=== PATIENT | female | born 2000 | race Caucasian/White ===

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

== ENCOUNTER 2021-03-18 20:45 | Emergency (ER) | payer OTHER ==
[2021-03-18 20:48] VITALS: BP 105/70; PULSE 58; TEMP 98.3; BMI 25.4
[2021-03-18] MEDS ORDERED: ERYTHROMYCIN 0.5% OPHTHALMIC OINTMENT 3.5 GM TUBE OS ONE (21:20)
[2021-03-18] MEDS ORDERED: ERYTHROMYCIN 0.5% OPHTHALMIC OINTMENT 3.5 GM TUBE ONE (21:29)
== END 2021-03-18 22:10 | disposition home or self-care (01) ==
LOC: JERFT 20:45
DX: H11.422 Conjunctival edema, left eye (principal)
CPT/HCPCS: 99283-25

== ENCOUNTER 2022-04-04 05:18 | Emergency (ER) | payer OTHER ==
[2022-04-04 05:33] VITALS: BP 121/83; PULSE 68; TEMP 98.4; BMI 23.6
[2022-04-04] MEDS ORDERED: ACETAMINOPHEN 500 MG TABLET (FP) PO ONE (05:41)
[2022-04-04] MEDS ORDERED: IBUPROFEN 400 MG TABLET (FP) PO ONE ×2 (05:42→05:52)
[2022-04-04] MEDS ORDERED: AMOX TR/POT CLAV 875MG/125MG TABLETS (FP) PO ONE (05:42)
[2022-04-04] MEDS ORDERED: AMOX TR/POT CLAV 875MG/125MG TABLETS (FP) ONE (05:51)
[2022-04-04] MEDS ORDERED: ACETAMINOPHEN 325 MG TABLET (FP) ONE (05:52)
== END 2022-04-04 06:01 | disposition home or self-care (01) ==
LOC: JER 05:18
DX: H66.91 Otitis media, unspecified, right ear (principal)
CPT/HCPCS: 99283-25

== ENCOUNTER 2022-06-28 14:35 | Emergency (ER) | payer OTHER ==
[2022-06-28 14:40] VITALS: BP 114/73; PULSE 88; RESP 18; TEMP 97.8; BMI 27.1
[2022-06-28] MEDS ORDERED: ONDANSETRON 4 MG/2 ML VIAL IVPUSH ONE (16:05)
[2022-06-28] MEDS ORDERED: KETOROLAC TROMETHAMINE 30 MG/1 ML VIAL IVPUSH ONE (16:05)
[2022-06-28] MEDS ORDERED: SODIUM CHLORIDE 0.9% 500 ML INFUS.BAG IV ONE (16:05)
[2022-06-28] MEDS ORDERED: ONDANSETRON 4 MG/2 ML VIAL ONE (16:18)
[2022-06-28] MEDS ORDERED: KETOROLAC TROMETHAMINE 30 MG/1 ML VIAL ONE (16:18)
[2022-06-28] MEDS ORDERED: FAMOTIDINE 20 MG/50 ML IVPB 20 MG/50 ML MG IVPB ONE ×2 (16:19→16:29)
[2022-06-28 16:39] LABS: BASO % 0.2 % (0-2.0); EOS % 1.5 % (0-4.5); HEMATOCRIT 40.4 % (32.4-45.2); HEMOGLOBIN 13.5 GM/dL (10.7-15.3); LYMPH % 9.3 % (8-40); MCH 30.3 pg (25.7-33.7); MCHC 33.5 g/dl (32.0-36.0); MEAN CELL VOLUME 90.7 fl (80-96); MEAN PLT VOLUME 8.6 fl (7.5-11.1); MONO % 7.4 % (3.8-10.2); NEUT % 81.6 % (42.8-82.8); PLATELET COUNT 245 10^3/uL (134-434); RBC 4.45 M/mm3 (3.60-5.2); RDW 13.5 % (11.6-15.6); WHITE BLOOD COUNT 11.5 K/mm3 (4.0-10.0)
[2022-06-28 16:49] LABS: CALCIUM 8.5 mg/dL (8.5-10.1)
[2022-06-28 16:50] LABS: ALBUMIN 3.8 g/dl (3.4-5.0); BLOOD UREA NITROGEN 11.2 mg/dL (7-18)
[2022-06-28 16:53] LABS: CREATININE 0.5 mg/dL (0.55-1.3)
[2022-06-28 16:54] LABS: TOT PROT 7.5 g/dl (6.4-8.2)
[2022-06-28 16:55] LABS: BILIRUBIN,TOTAL 0.5 mg/dL (0.2-1)
[2022-06-28 17:15] LABS: EPI CELLS 11 /uL (0-25.1); HYALINE CASTS 1 /uL (0-3.1); URINE APPEARANCE CLEAR; URINE BACTERIA 119 /uL (0-1359); URINE BILIRUBIN NEGATIVE (NEGATIVE); URINE COLOR DK YELLOW; URINE GLUCOSE (UA) NEGATIVE (NEGATIVE); URINE KETONE TRACE (NEGATIVE); URINE LEUK ESTERASE NEGATIVE (NEGATIVE); URINE NITRITE NEGATIVE (NEGATIVE); URINE PROTEIN TRACE (NEGATIVE); URINE WBC 9 /uL (0-25.8)
[2022-06-28 17:26] LABS: URINE RBC 139 /uL (0-23.9)
== END 2022-06-28 18:25 | disposition home or self-care (01) ==
LOC: JER 14:35
PROC: 3E033GC Introduction of Other Therapeutic Substance into Peripheral Vein, Percutaneous Approach (ICD-10-PCS; principal; 2022-06-28)
DX: R11.2 Nausea with vomiting, unspecified (principal); R19.7 Diarrhea, unspecified; K82.8 Other specified diseases of gallbladder
CPT/HCPCS: 36415; 76705-TC; 80053; 81003; 83690; 84703; 85025; 99284-25

== ENCOUNTER 2023-05-31 08:43 | Emergency (ER) | payer OTHER ==
[2023-05-31 09:17] VITALS: BP 102/49; PULSE 58; RESP 18; TEMP 98.1; BMI 25.6
[2023-05-31] MEDS ORDERED: ACETAMINOPHEN 500 MG TABLET (FP) PO ONE (09:57)
[2023-05-31 10:51] LABS: BASO % 0.9 % (0-2.0); EOS % 2.3 % (0-4.5); HEMATOCRIT 37.3 % (32.4-45.2); HEMOGLOBIN 12.8 GM/dL (10.7-15.3); LYMPH % 21.4 % (8-40); MCH 30.8 pg (25.7-33.7); MCHC 34.4 g/dl (32.0-36.0); MEAN CELL VOLUME 89.5 fl (80-96); MEAN PLT VOLUME 7.9 fl (7.5-11.1); MONO % 4.7 % (3.8-10.2); NEUT % 70.7 % (42.8-82.8); PLATELET COUNT 261 10^3/uL (134-434); RBC 4.16 M/mm3 (3.60-5.2); RDW 13.6 % (11.6-15.6); WHITE BLOOD COUNT 8.9 K/mm3 (4.0-10.0)
[2023-05-31 11:01] LABS: URINE APPEARANCE TURBID; URINE COLOR RED
[2023-05-31 11:04] LABS: PH,URINE 5.5 (5.0-8.0); URINE BILIRUBIN NEGATIVE (NEGATIVE); URINE GLUCOSE (UA) NEGATIVE (NEGATIVE); URINE KETONE NEGATIVE (NEGATIVE); URINE NITRITE NEGATIVE (NEGATIVE); URINE PROTEIN 1+ (NEGATIVE)
[2023-05-31 11:05] LABS: URINE LEUK ESTERASE NEGATIVE (NEGATIVE)
[2023-05-31 11:06] LABS: EPI CELLS 9 /uL (0-25.1); HYALINE CASTS 28 /uL (0-3.1); URINE RBC 3459 /uL (0-23.9); URINE WBC 16 /uL (0-25.8)
[2023-05-31] MEDS ORDERED: ACETAMINOPHEN 325 MG TABLET (FP) ONE (11:15)
[2023-05-31 11:19] LABS: POTASSIUM 4.1 mmol/L (3.5-5.1)
[2023-05-31 11:22] LABS: ALBUMIN 3.2 g/dl (3.4-5.0); BLOOD UREA NITROGEN 6.2 mg/dL (7-18)
[2023-05-31 11:24] LABS: CALCIUM 9.2 mg/dL (8.5-10.1)
[2023-05-31 11:25] LABS: CREATININE 0.4 mg/dL (0.55-1.3)
[2023-05-31 11:26] LABS: BILIRUBIN,TOTAL 0.2 mg/dL (0.2-1); TOT PROT 6.6 g/dl (6.4-8.2)
== END 2023-05-31 14:29 | disposition home or self-care (01) ==
LOC: JER 08:43
DX: O20.9 Hemorrhage in early pregnancy, unspecified (principal); O26.892 Other specified pregnancy related conditions, second trimester; R10.30 Lower abdominal pain, unspecified; R30.0 Dysuria; Z3A.16 16 weeks gestation of pregnancy
CPT/HCPCS: 36415; 76817-TC; 80053; 81003; 84702; 85025; 86850; 86900; 86901; 87086; 99284-25

== ENCOUNTER 2023-11-20 03:00 | Inpatient (IN) | payer OTHER ==
[2023-11-20] MEDS ORDERED: LACTATED RINGERS SOLUTION 1,000 ML IV SCH (03:40)
[2023-11-20] MEDS ORDERED: AMPICILLIN - 2 GM in SODIUM CHLORIDE 100 ML IVPB ONE (03:40)
[2023-11-20 04:01] VITALS: BMI 32.5
[2023-11-20 04:01] LABS: BASO % 0.6 % (0-2.0); EOS % 1.6 % (0-4.5); HEMATOCRIT 32.5 % (32.4-45.2); HEMOGLOBIN 10.7 GM/dL (10.7-15.3); LYMPH % 25.6 % (8-40); MCH 25.6 pg (25.7-33.7); MCHC 32.9 g/dl (32.0-36.0); MEAN CELL VOLUME 77.8 fl (80-96); MEAN PLT VOLUME 9.4 fl (7.5-11.1); MONO % 10.5 % (3.8-10.2); NEUT % 61.7 % (42.8-82.8); PLATELET COUNT 195 10^3/uL (134-434); RBC 4.18 M/mm3 (3.60-5.2); RDW 18.9 % (11.6-15.6); WHITE BLOOD COUNT 9.4 K/mm3 (4.0-10.0)
[2023-11-20 04:19] LABS: INR 0.98 (0.83-1.09); PROTHROMBIN TIME (PATIENT) 11.4 SEC (9.7-13.0)
[2023-11-20 04:21] LABS: ACTIVATED PTT 31.1 SECONDS (25.2-36.5)
[2023-11-20] MEDS ORDERED: LIDOCAINE HCL 1% PRESERVATIVE FREE - 30ML VIAL ONE (04:46)
[2023-11-20] MEDS ORDERED: OXYTOCIN 20 UNITS in 0.9% NS 20 UNIT/1,000 ML INFUS.BAG IV ONE ×2 (04:46→08:25)
[2023-11-20 04:58] LABS: POTASSIUM 4.1 mmol/L (3.5-5.1)
[2023-11-20 04:59] LABS: CALCIUM 8.6 mg/dL (8.5-10.1)
[2023-11-20 05:00] LABS: BLOOD UREA NITROGEN 12.6 mg/dL (7-18)
[2023-11-20 05:03] LABS: CREATININE 0.5 mg/dL (0.55-1.3)
[2023-11-20] MEDS ORDERED: ELECTROLYTE-148 SOLN 1,000 ML IV SCH (05:15)
[2023-11-20] MEDS ORDERED: MISOPROSTOL 200 MCG TABLET ONE (06:59)
[2023-11-20] MEDS ORDERED: BISACODYL 10 MG SUPP.RECT RC PRN (07:14)
[2023-11-20] MEDS ORDERED: BENZOCAINE 20% 57 GM BOTTLE TP PRN (07:14)
[2023-11-20] MEDS ORDERED: ACETAMINOPHEN 325 MG TABLET (FP) PO PRN (07:14)
[2023-11-20] MEDS ORDERED: WITCH HAZEL 50% (TUCKS) 40 PAD/JAR PAD TP PRN (07:14)
[2023-11-20] MEDS ORDERED: BENZOCAINE 28 GM HEMORRHOIDAL OINTMENT TP PRN (07:14)
[2023-11-20] MEDS ORDERED: OXYTOCIN 20 UNITS in 0.9% NS 20 UNIT/1,000 ML INFUS.BAG IV SCH (07:15)
[2023-11-20] MEDS ORDERED: MISOPROSTOL 100 MCG TABLET PV ONE (08:00)
[2023-11-20] MEDS: AMPICILLIN - 1 GM in SODIUM CHLORIDE 100 ML IVPB SCH (09:16)
[2023-11-20] MEDS: IBUPROFEN 600 MG TABLET (FP) PO PRN (23:42)
[2023-11-21] MEDS: AMPICILLIN - 1 GM in SODIUM CHLORIDE 100 ML IVPB SCH (00:36)
[2023-11-21] MEDS: IBUPROFEN 600 MG TABLET (FP) PO PRN ×3 (05:33→23:04)
[2023-11-21 08:41] LABS: BASO % 0.5 % (0-2.0); EOS % 1.5 % (0-4.5); HEMATOCRIT 29.5 % (32.4-45.2); HEMOGLOBIN 9.4 GM/dL (10.7-15.3); LYMPH % 23.7 % (8-40); MCH 25.4 pg (25.7-33.7); MCHC 31.8 g/dl (32.0-36.0); MEAN CELL VOLUME 79.6 fl (80-96); MEAN PLT VOLUME 8.9 fl (7.5-11.1); MONO % 7.6 % (3.8-10.2); NEUT % 66.7 % (42.8-82.8); PLATELET COUNT 168 10^3/uL (134-434); RBC 3.71 M/mm3 (3.60-5.2); RDW 19.1 % (11.6-15.6); WHITE BLOOD COUNT 9.1 K/mm3 (4.0-10.0)
[2023-11-21] MEDS ORDERED: SENNOSIDES/DOCUSATE COMBO (SENNA PLUS) TABLET (UD) PO PRN (22:00)
[2023-11-21 22:31] VITALS: TEMP 97.8
[2023-11-22] MEDS: IBUPROFEN 600 MG TABLET (FP) PO PRN (08:46)
[2023-11-22 10:18] VITALS: BP 118/79; PULSE 64; RESP 18
== END 2023-11-22 13:30 | disposition home or self-care (01) | DRG 560 ==
LOC: JLDR 03:00 → J3W 09:15
PROVIDERS: ADMIT Student in an Organized Health Care Education/Training Program; ATTEND Student in an Organized Health Care Education/Training Program
PROC: 10E0XZZ Delivery of Products of Conception, External Approach (ICD-10-PCS; principal; 2023-11-20)
DX: O48.0 Post-term pregnancy (principal); O99.824 Streptococcus B carrier state complicating childbirth; Z3A.41 41 weeks gestation of pregnancy; Z37.0 Single live birth
CPT/HCPCS: 36415; 80048; 85025; 85610; 85730; 86780; 86850; 86900; 86901

== ENCOUNTER 2024-02-13 17:20 | Emergency (ER) | payer OTHER ==
[2024-02-13 17:27] VITALS: BMI 33.2
[2024-02-13] MEDS ORDERED: ONDANSETRON 4 MG/2 ML VIAL ONE (17:42)
[2024-02-13] MEDS ORDERED: ACETAMINOPHEN INJECTION 100 ML IVPB ONE (17:42)
[2024-02-13] MEDS: ACETAMINOPHEN 1000 MG/100 ML BAG IVPB ONE (18:05)
[2024-02-13] MEDS: ONDANSETRON 4 MG/2 ML VIAL IVPUSH ONE (18:05)
[2024-02-13] MEDS: SODIUM CHLORIDE 0.9% 500 ML INFUS.BAG IV ONE (18:05)
[2024-02-13 18:13] LABS: BASO % 0.1 % (0-2.0); EOS % 0.1 % (0-4.5); HEMATOCRIT 32.6 % (32.4-45.2); HEMOGLOBIN 10.8 GM/dL (10.7-15.3); LYMPH % 12.7 % (8-40); MCH 26.9 pg (25.7-33.7); MEAN CELL VOLUME 81.5 fl (80-96); MEAN PLT VOLUME 7.9 fl (7.5-11.1); MONO % 15.6 % (3.8-10.2); NEUT % 71.5 % (42.8-82.8); PLATELET COUNT 279 10^3/uL (134-434); RDW 17.3 % (11.6-15.6); WHITE BLOOD COUNT 12.8 K/mm3 (4.0-10.0)
[2024-02-13 18:34] LABS: CHLORIDE 103 mmol/L (98-107); SODIUM 135 mmol/L (136-145)
[2024-02-13 18:36] LABS: ALBUMIN 2.8 g/dl (3.4-5.0); BLOOD UREA NITROGEN 10.6 mg/dL (7-18); CALCIUM 8.1 mg/dL (8.5-10.1); CO2 23 mmol/L (21-32); GLUCOSE,RANDOM 119 mg/dL (74-106)
[2024-02-13 18:39] LABS: CREATININE 0.8 mg/dL (0.55-1.3); SGOT/AST 35 U/L (15-37); SGPT/ALT 40 U/L (13-61)
[2024-02-13 18:40] LABS: BILIRUBIN,TOTAL 0.4 mg/dL (0.2-1); TOT PROT 7.1 g/dl (6.4-8.2)
[2024-02-13 18:43] LABS: ALK PHOS 107 U/L (45-117)
[2024-02-13 18:57] LABS: ANION GAP 9 mmol/L (4-13); EPI CELLS 4 /uL (0-25.1); HYALINE CASTS 2 /uL (0-3.1); POTASSIUM 2.8 mmol/L (3.5-5.1); URINE APPEARANCE CLEAR; URINE BILIRUBIN NEGATIVE (NEGATIVE); URINE COLOR YELLOW; URINE GLUCOSE (UA) NEGATIVE (NEGATIVE); URINE KETONE NEGATIVE (NEGATIVE); URINE LEUK ESTERASE 1+ (NEGATIVE); URINE NITRITE POSITIVE (NEGATIVE); URINE PROTEIN 2+ (NEGATIVE); URINE RBC 96 /uL (0-23.9); URINE WBC 767 /uL (0-25.8)
[2024-02-13] MEDS ORDERED: POTASSIUM CHLORIDE ORAL LIQUID 20 MEQ/15 ML ONE (19:11)
[2024-02-13] MEDS ORDERED: CEFTRIAXONE 1 GM/50 ML BAG ONE (19:11)
[2024-02-13] MEDS: CEFTRIAXONE 1 GM in DEXTROSE 5%-WATER - 100 ML IVPB ONE (19:17)
[2024-02-13] MEDS: POTASSIUM CHLORIDE ORAL LIQUID 20 MEQ/15 ML PO ONE (19:17)
[2024-02-13] MEDS ORDERED: KETOROLAC TROMETHAMINE 30 MG/1 ML VIAL ONE (19:24)
[2024-02-13] MEDS: KETOROLAC TROMETHAMINE 30 MG/1 ML VIAL IVPUSH ONE (19:30)
[2024-02-13 19:32] VITALS: RESP 15; TEMP 98.2
[2024-02-13] MEDS ORDERED: KCL 10 MEQ IVPB 20 MEQ/200 ML INFUS.BAG IVPB ONE (19:40)
[2024-02-13 19:42] LABS: THROAT:GRP A STREP NOT DETECTED (NOTDETECTED)
[2024-02-13] MEDS: KCL 10 MEQ IVPB 10 MEQ/100 ML INFUS.BAG IVPB SCH (19:57)
[2024-02-13 20:21] LABS: URINE BACTERIA 44 /uL (0-1359)
[2024-02-13 23:07] VITALS: BP 107/66; PULSE 77
== END 2024-02-13 23:07 | disposition left against medical advice (07) ==
LOC: JER 17:20
PROC: 3E03329 Introduction of Other Anti-infective into Peripheral Vein, Percutaneous Approach (ICD-10-PCS; principal; 2024-02-13)
PROC: 3E030NZ Introduction of Analgesics, Hypnotics, Sedatives into Peripheral Vein, Open Approach (ICD-10-PCS; 2024-02-13)
PROC: 3E0303Z Introduction of Anti-inflammatory into Peripheral Vein, Open Approach (ICD-10-PCS; 2024-02-13)
PROC: 3E030GC Introduction of Other Therapeutic Substance into Peripheral Vein, Open Approach (ICD-10-PCS; 2024-02-13)
DX: N30.01 Acute cystitis with hematuria (principal); E87.6 Hypokalemia; R50.9 Fever, unspecified; M79.10 Myalgia, unspecified site; R11.2 Nausea with vomiting, unspecified; Z20.822 Contact with and (suspected) exposure to COVID-19
CPT/HCPCS: 0241U-QW; 36415; 80053; 81003; 83690; 85025; 87086; 87651; 93005; 93010; 99284-25; J0131